=== PATIENT | female | born 1995 | race Caucasian/White ===

== ENCOUNTER 2019-12-13 09:28 | Day surgery (SDC) | payer OTHER ==
[2019-12-13] MEDS ORDERED: ASTRINGYN 8 GM TP ONE (09:29)
[2019-12-13] MEDS ORDERED: Lactated Ringers 1,000 ML IV SCH (10:00)
== END 2019-12-13 10:09 | disposition home or self-care (01) ==
LOC: SDC 09:28
PROVIDERS: ATTEND Obstetrics & Gynecology
DX: D06.9 Carcinoma in situ of cervix, unspecified (principal); Z53.09 Procedure and treatment not carried out because of other contraindication
CPT/HCPCS: 36415; 84702; 84703; A9270-GY

== ENCOUNTER 2020-01-10 06:39 | Day surgery (SDC) | payer OTHER ==
[~2020-01-10 06:39] MED LIST: Lactated Ringers 0 ML IV ONE; Lactated Ringers 1,000 ML IV SCH
[2020-01-10] MEDS ORDERED: Versed 2 MG/2 ML Injection ONE (08:02)
[2020-01-10] MEDS ORDERED: Versed 2 MG/2 ML Injection IV ONE (08:05)
[2020-01-10] MEDS ORDERED: ASTRINGYN 8 GM TP ONE (08:22)
[2020-01-10] MEDS ORDERED: Lactated Ringers 1,000 ML IV ONE (08:22)
[2020-01-10] MEDS ORDERED: Decadron 4 MG INJ ONE (08:28)
[2020-01-10] MEDS ORDERED: Zofran 4 MG/2 ML VIAL ONE (08:28)
[2020-01-10] MEDS ORDERED: Quelicin Fliptop 200 MG/10 ML ONE (08:28)
[2020-01-10] MEDS ORDERED: DIPRIVAN 200 MG/20 ML IV ONE (08:28)
[2020-01-10] MEDS ORDERED: Xylocaine-Mpf 2% 5 Ml Vial ONE (08:28)
[2020-01-10] MEDS ORDERED: SUBLIMAZE 100 MCG/2 ML ONE (08:29)
[2020-01-10] MEDS ORDERED: XYLOCAINE 1%/Epi 1:100000 MDV 20 ML ONE (08:43)
--- NOTE | 2020-01-10 09:42 | OP ---
SURGERY DATE/TIME: 01/10/2020 0832 PREOPERATIVE DIAGNOSIS: Severe cervical dysplasia. POSTOPERATIVE DIAGNOSIS: Severe cervical dysplasia. PROCEDURE: Loop electrosurgical excision procedure. SURGEON: Abel Mclean D.O. HEALTH THERAPIST: food technician. ANESTHESIA: General. ESTIMATED BLOOD LOSS: Minimal. COMPLICATIONS: None. INDICATIONS: The risks, benefits, indications and alternatives of the procedure were reviewed with the patient prior to procedure. The patient understood the risk of infection, bleeding, bowel injury, bladder injury, ureteral injury, uterine perforation, decreased sex drive, anorgasmia, cervical incompetence, labor that could be associated with this procedure and desires to have this procedure as a possible need to alleviate her current medical condition. DESCRIPTION OF PROCEDURE AND FINDINGS: At this point the patient is taken to the operating room, given general sedation, placed in dorsal lithotomy position. Prepped and draped in usual sterile fashion. A coated speculum is then placed into the vagina and the cervix then injected circumferentially with 1% lidocaine with epinephrine. From this point the loop instrument was then used to excise the ectocervical portion and was done so with a right to left motion where in depth of approximately 4 to 5 mm of ectocervical tissue was excised without complication. An additional 1 to 2 mm of endocervical tissue was excised in similar fashion. From this point the loop industrial controls technician ball was then placed on the surface of the cervix for further hemostasis. From this point there was noted from the cervix. At this point instruments were then removed from the patient's vaginal region. After removal of all instruments from the vaginal region, the patient was then taken out of the dorsal lithotomy position, was taken out of anesthesia and was then taken to the recovery room in stable condition. All instruments and laps were accounted for x2.
[2020-01-10 10:07] VITALS: O2SAT 100
[2020-01-10 10:08] VITALS: BP 120/72; PULSE 97
== END 2020-01-10 10:12 | disposition home or self-care (01) ==
LOC: SDC 06:39
PROVIDERS: ATTEND Obstetrics & Gynecology
DX: D06.9 Carcinoma in situ of cervix, unspecified (principal)
CPT/HCPCS: 57460; 84703; J0330; J1100; J2250; J2405; J2704; J3010; A9270-GY

== ENCOUNTER 2020-09-27 10:10 | Observation (INO) | payer BC, OTHER ==
[2020-09-27 10:39] VITALS: BP 108/60; PULSE 85
== END 2020-09-27 11:10 | disposition home or self-care (01) ==
LOC: OB 10:10
PROVIDERS: ADMIT Obstetrics & Gynecology; ATTEND Obstetrics & Gynecology
DX: O26.873 Cervical shortening, third trimester (principal); Z3A.32 32 weeks gestation of pregnancy
CPT/HCPCS: 59025; G0378

== ENCOUNTER 2020-10-04 10:08 | Observation (INO) | payer BC, OTHER ==
[2020-10-04 15:41] VITALS: BP 116/62; PULSE 78; O2SAT 98
== END 2020-10-04 11:17 | disposition home or self-care (01) ==
LOC: OB 10:08
PROVIDERS: ADMIT Obstetrics & Gynecology; ATTEND Obstetrics & Gynecology
DX: O26.873 Cervical shortening, third trimester (principal); Z3A.33 33 weeks gestation of pregnancy
CPT/HCPCS: 59025; G0378

== ENCOUNTER 2020-10-11 10:33 | Observation (INO) | payer BC, OTHER ==
[2020-10-11 11:07] VITALS: BP 105/64; PULSE 97
== END 2020-10-11 11:25 | disposition home or self-care (01) ==
LOC: OB 10:33
PROVIDERS: ADMIT Obstetrics & Gynecology; ATTEND Obstetrics & Gynecology
DX: O26.873 Cervical shortening, third trimester (principal); Z3A.34 34 weeks gestation of pregnancy
CPT/HCPCS: 59025; G0378

== ENCOUNTER 2020-10-18 10:24 | Observation (INO) | payer BC, OTHER ==
[2020-10-18 11:01] VITALS: BP 112/62; PULSE 86
== END 2020-10-18 11:05 | disposition home or self-care (01) ==
LOC: MED SURG 10:24
PROVIDERS: ADMIT Obstetrics & Gynecology; ATTEND Obstetrics & Gynecology
DX: O26.873 Cervical shortening, third trimester (principal)
CPT/HCPCS: 59025; G0378

== ENCOUNTER 2020-10-25 10:15 | Observation (INO) | payer BC, OTHER ==
[2020-10-25 10:36] VITALS: BP 114/66; PULSE 94
== END 2020-10-25 11:05 | disposition home or self-care (01) ==
LOC: OB 10:15
PROVIDERS: ADMIT Obstetrics & Gynecology; ATTEND Obstetrics & Gynecology
DX: O26.873 Cervical shortening, third trimester (principal)
CPT/HCPCS: 59025; G0378

== ENCOUNTER 2020-10-29 17:54 | Observation (INO) | payer BC, OTHER ==
[2020-10-29 18:40] VITALS: BP 115/67; PULSE 78
== END 2020-10-29 19:00 | disposition home or self-care (01) ==
LOC: OB 17:54
PROVIDERS: ADMIT Obstetrics & Gynecology; ATTEND Obstetrics & Gynecology
DX: O26.873 Cervical shortening, third trimester (principal)
CPT/HCPCS: 59025; G0378

== ENCOUNTER 2020-11-01 14:33 | Observation (INO) | payer BC, OTHER ==
[2020-11-01 15:56] VITALS: BP 119/65; PULSE 100; O2SAT 99
--- NOTE | 2020-11-01 16:39 | XRAY ---
Indication: History intrauterine growth retardation. Ultrasound biophysical profile exam performed. Comparison: None There is a single viable intrauterine currently in cephalic presentation with heart rate 169 BPM. Four-quadrant YAYA is 10 cm. Largest amniotic pocket 6 cm. 2 points given for breathing, movements, tone, and qualitative amniotic fluid volume. Impression: Total biophysical profile score is 8 out of 8.
== END 2020-11-01 15:45 | disposition home or self-care (01) ==
LOC: OB 14:33
PROVIDERS: ADMIT Obstetrics & Gynecology; ATTEND Obstetrics & Gynecology
DX: O35.8XX9 Maternal care for other (suspected) fetal abnormality and damage, other fetus (principal)
CPT/HCPCS: 59025; 76818; G0378

== ENCOUNTER 2020-11-04 17:02 | Observation (INO) | payer BC, OTHER ==
[2020-11-04 17:15] VITALS: BP 116/72; PULSE 96
== END 2020-11-04 17:40 | disposition home or self-care (01) ==
LOC: OB 17:02
PROVIDERS: ADMIT Obstetrics & Gynecology; ATTEND Obstetrics & Gynecology
DX: O26.873 Cervical shortening, third trimester (principal)
CPT/HCPCS: 59025; G0378

== ENCOUNTER 2020-11-07 19:07 | Observation (INO) | payer BC, OTHER ==
[2020-11-07 20:20] VITALS: O2SAT 99
[2020-11-07 22:37] VITALS: BP 125/75; PULSE 90
== END 2020-11-07 21:00 | disposition home or self-care (01) ==
LOC: OB 19:07
PROVIDERS: ADMIT Obstetrics & Gynecology; ATTEND Obstetrics & Gynecology
DX: O35.8XX9 Maternal care for other (suspected) fetal abnormality and damage, other fetus (principal); Z3A.37 37 weeks gestation of pregnancy
CPT/HCPCS: 59025; G0378